=== PATIENT | female | born 1945 | race Caucasian/White ===

== ENCOUNTER 2018-12-09 07:11 | Day surgery (SDC) | payer OTHER ==
[~2018-12-09] VITALS: Ht 160 cm; Wt 51.8 kg
[2018-12-09 08:23] VITALS: Ht 160 cm; Wt 51.8 kg
[2018-12-09] MEDS ORDERED: AMLO-147 PO (08:34)
[2018-12-09] MEDS ORDERED: ATOR20TA38 PO (08:34)
[2018-12-09] MEDS ORDERED: CARB400T3 PO (08:34)
[2018-12-09] MEDS ORDERED: METO-335 PO (08:34)
[2018-12-09] MEDS ORDERED: LOSA50TA14 PO (08:34)
--- NOTE | 2018-12-09 09:18 | PREAC ---
Date/Time of Note Date/Time of Note DATE: 12/09/18 TIME: 09:16 Anesthesia Eval and Record Evaluation Time Pre-Procedure Interview DATE: 12/09/18 TIME: 09:16 Age 73 Sex female NPO: 8 hrs Preoperative diagnosis + occult blood Planned procedure colonoscopy Past Medical History Past Medical History: Includes Cardio: HTN Endo: Diabetes Renal: CKD Surgery & Anesthesia Issues No known issue Meds Anticoagulation: No Beta Darshan within 24 hr: No Reason Beta Darshan not given: Other (48 hours ago) Reported Medications Carbamazepine (Carbamazepine ER) 400 Mg Tab.er.12h, 400 MG PO Q12, #60 TAB.SA 12/09/18 Metoprolol Succinate* (Toprol XL*) 25 Mg Tab.sr.24h, 25 MG PO DAILY, #30 TAB 12/09/18 Amlodipine Besylate* (Amlodipine Besylate*) 10 Mg Tablet, 10 MG PO DAILY, #30 TAB 12/09/18 Losartan Potassium* (Losartan Potassium*) 50 Mg Tablet, 50 MG PO DAILY, TAB 12/09/18 Atorvastatin Calcium* (Atorvastatin Calcium*) 20 Mg Tablet, 20 MG PO DAILY, #30 TAB 12/09/18 Meds reviewed: Yes Allergies Coded Allergies: No Known Allergy (Unverified , 12/09/18) Allergies Reviewed: Yes Labs/Studies Labs Reviewed: Reviewed by anesthesiologist test: N/A Studies: ECG (n/a), CXR (n/a) Pre-procedure Exam Airway: Adequate mouth opening Mallampati: Mallampati I Teeth: Normal (upper partial) Lung: Normal Heart: Normal ASA Physical Status ASA physical status: 2 Emergency: None Planned Anesthetic General/MAC: MAC Planned Pain Management Parenteral pain med Pre-operative Attestations Prior to commencing anesthesia and surgery, the patient was re-evaluated, there was verification of: *The patient's identity *The results of appropriate recent lab work and preoperative vital signs *The above evaluation not changing prior to induction *Anesthetic plan, risk benefits, alternative and complications discussed with patient/family; questions answered; patient/family understands, accepts and wishes to proceed. EZRA ESCOBAR MD Dec 09, 2018 09:18
[2018-12-09] MEDS ORDERED: PROPOFOL 20 ML ONE (09:19)
[2018-12-09 09:33] VITALS: BP 227/102; PULSE 82; RESP 18
[2018-12-09] MEDS ORDERED: LABETALOL HCL 20MG INJ ONE (09:44)
[2018-12-09] MEDS ORDERED: hydrALAzine 20 MG INJ ONE (10:45)
[2018-12-09 11:17] VITALS: BP 161/62; PULSE 82; RESP 14
--- NOTE | 2018-12-09 16:43 | PAC ---
Date/Time of Note Date/Time of Note DATE: 12/09/18 TIME: 16:43 Post-Anesthesia Notes Post-Anesthesia Note Last documented vital signs Vital Signs Date Temp Pulse Resp B/P (MAP) Pulse Ox O2 O2 Flow FiO2 Time Delivery Rate 12/09/18 97 82 14 161/62 97 Room Air 11:17 (95) 12/09/18 96.6 09:33 Activity: WNL Respiratory function: WNL Cardiovascular function: WNL Mental status: Baseline Pain reasonably controlled: Yes Hydration appropriate: Yes Nausea/Vomiting absent: No EZRA ESCOBAR MD Dec 09, 2018 16:43
== END 2018-12-09 13:02 | disposition home or self-care (01) ==
LOC: GIL 07:11
PROVIDERS: ATTEND Internal Medicine Gastroenterology
DX: K92.1 Melena (principal); K64.8 Other hemorrhoids; K57.30 Diverticulosis of large intestine without perforation or abscess without bleeding
CPT/HCPCS: 45378; J0360; Z7610